=== PATIENT | female | born 1980 | race American Indian/Alaskan Native ===

== ENCOUNTER 2016-08-09 15:01 | Emergency (ER) | payer MEDICAID | END 2016-08-09 16:10 | disposition left against medical advice (07) | LOC: JP.ED 15:01 | DX: Z53.21 Procedure and treatment not carried out due to patient leaving prior to being seen by health care provider (principal); E86.0 Dehydration; J02.9 Acute pharyngitis, unspecified; R51 Headache | CPT/HCPCS: 99281 ==

== ENCOUNTER 2017-09-13 00:14 | Emergency (ER) | payer MEDICAID ==
[2017-09-13 00:55] VITALS: BP 132/74
--- NOTE | 2017-09-13 01:22 | EDM.PDOC ---
ED HPI GENERAL MEDICAL PROBLEM - General Chief Complaint: Diabetic Complaint Stated Complaint: HIGH BLOOD SUGARS Time Seen by Provider: 09/13/17 01:05 Source of Information: Reports: Patient History Limitations: Reports: No Limitations - History of Present Illness INITIAL COMMENTS - FREE TEXT/NARRATIVE: 36 yo female with NIDDM presents with a request for insulin. She left her insulin at home and drove another family member here to the ER. On the way she stopped at a fast food restaurant and now says she feels like she if getting "high". Was last this high a couple days ago and took extra insulin. Since she is not near her home or her insulin at this time she came to the ER for a dose of insulin. Is on prednisone for another condition and feels this is bumping her BS up. Onset: Today Onset Date: 09/13/17 Duration: Minutes:, Getting Worse Location: Reports: Generalized Quality: Reports: Other (no pain) Severity: Mild Improves with: Reports: Medication (insulin) Worsens with: Reports: Other (food/prednisone) Context: Reports: Other (poorly controlled AODM) Associated Symptoms: Reports: Other (slightly blurred vision. Increase thirst and urination.) Treatments RECYCLING ASSISTANT: Reports: Other (see below) (none) - Related Data Allergies Allergy/AdvReac Type Severity Reaction Status Date / Time Penicillins Allergy Hives Verified 09/13/17 00:54 risperidone [From Risperdal] Allergy Seizure Verified 09/13/17 00:54 venom-honey bee Allergy Anaphylactic Verified 09/13/17 00:54 [bee venom (honey bee)] Shock Home Meds: Home Meds Levothyroxine Sodium [Synthroid] 75 mcg PO DAILY 08/21/14 [History] Metoprolol Tartrate [Lopressor] 50 mg PO BID 08/21/14 [History] Montelukast Sodium [Singulair] 10 mg PO DAILY 08/21/14 [History] Acetaminophen [Tylenol] 650 mg PO ASDIRECTED PRN 05/04/15 [History] Insulin Aspart [Novolog Flexpen] 1 dose SQ ASDIRECTED 05/04/15 [History] Insulin Detemir [Levemir] 40 units SQ BID 05/04/15 [History] Liraglutide [Victoza] 1.8 mg SQ DAILY 05/04/15 [History] Vilazodone [Viibryd] 40 mg PO DAILY 05/04/15 [History] ARIPiprazole [Abilify] 15 mg PO DAILY 06/29/15 [History] Aspirin [Adult Low Dose Aspirin EC] 81 mg PO DAILY 06/29/15 [History] Cholecalciferol (Vitamin D3) [Vitamin D3] 5,000 unit PO DAILY 06/29/15 [History] Hydrochlorothiazide 25 mg PO BID 06/29/15 [History] Multivitamin [Multi-Vitamin Daily] 1 tab PO DAILY 06/29/15 [History] Potassium Chloride [Klor-Con] 25 meq PO DAILY 06/29/15 [History] Spironolactone [Aldactone] 25 mg PO DAILY 06/17/16 [History] Past Medical History HEENT History: Reports: Impaired Vision Cardiovascular History: Reports: Arrhythmia, Hypertension Respiratory History: Reports: Asthma Gastrointestinal History: Reports: Cirrhosis, GERD, Hepatitis, Other (See Below) Other Gastrointestinal History: Esophageal varises Genitourinary History: Reports: Other (See Below) Other Genitourinary History: IGA 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 LEAD History: Reports: Other OB/BYN History: c sections x3 Musculoskeletal History: Reports: Back Pain, Chronic, Fracture Other Musculoskeletal History: t8 com Neurological History: Reports: Concussion, Seizure Psychiatric History: Reports: Addiction, Anxiety, Depression, Suicide Attempt Other Psychiatric History: recently off civil commitment done in January Endocrine/Metabolic History: Reports: Diabetes, Type II, Hypothyroidism, Obesity /BMI 30+ Immunologic History: Reports: Other (See Below) Other Immunologic History: Hep C - Infectious Disease History Infectious Disease History: Reports: Chicken Pox - Past Surgical History GI Surgical History: Reports: Cholecystectomy Female Surgical History: Reports: Section, Other (See Below) Other Female Surgeries/Procedures: bilateral kidney biopsy Social & Family History - Tobacco Use Smoking Status *Q: Current Every Day Smoker Years of Tobacco use: 20 Packs/Tins Daily: 1 Used Tobacco, but Quit: No Second Hand Smoke Exposure: Yes - Caffeine Use Caffeine Use: Reports: Tea Caffeine Use Comment: Past use of energy drinks, over use. - Alcohol Use Days Per Week of Alcohol Use: 0 - Recreational Drug Use Recreational Drug Use: Yes Drug Use in Last 12 Months: No Recreational Drug Type: Reports: Heroin Recreational Drug Use Frequency: Daily ED ROS GENERAL - Review of Systems Review Of Systems: See Below Constitutional: Reports: No Symptoms HEENT: Reports: No Symptoms Respiratory: Reports: No Symptoms GI/Abdominal: Reports: No Symptoms : Reports: No Symptoms Musculoskeletal: Reports: No Symptoms Skin: Reports: No Symptoms Neurological: Reports: No Symptoms Psychiatric: Reports: No Symptoms ED EXAM GENERAL NO PERIP PULSE - Physical Exam Exam: See Below Exam Limited By: No Limitations General Appearance: Alert, WD/WN, No Apparent Distress, Obese Eye Exam: Bilateral Eye: Normal Inspection Ears: Normal External Exam, Normal Canal, Hearing Grossly Normal, Normal TMs Nose: Normal Inspection, Normal Mucosa, No Blood Throat/Mouth: Normal Inspection, Normal Lips, Normal Oropharynx, No Airway Compromise Head: Atraumatic, Normocephalic Neck: Normal Inspection Respiratory/Chest: No Respiratory Distress, Lungs Clear, Normal Breath Sounds, No Accessory Muscle Use Cardiovascular: Regular Rate, Rhythm GI/Abdominal: Soft, Non-Tender Extremities: Normal Inspection Neurological: Alert, Oriented, CN II-XII Intact, Normal Cognition, No Motor/ Sensory Deficits Psychiatric: Normal Affect, Normal Mood Skin Exam: Warm, Dry, Intact, Normal Color, No Rash Course - Vital Signs Last Recorded V/S: Last Vital Signs Temp 35.9 C 09/13/17 00:55 Pulse 101 H 09/13/17 00:55 Resp 20 09/13/17 00:55 BP 132/74 09/13/17 00:55 Pulse Ox 98 09/13/17 00:55 - Orders/Labs/Meds Orders: Active Orders 24 hr Category Date Time Status GLUCOSE POC LAB TO COLLECT [POC] Stat Lab 09/13/17 01:17 Ordered Departure - Departure Time of Disposition: 01:40 Disposition: Home, Self-Care 01 Condition: Fair Clinical Impression: Hyperglycemia - Discharge Information Referrals: Adelso Groves MD [Primary Care Provider] - - My Orders Last 24 Hours: My Active Orders 09/13/17 01:17 GLUCOSE POC LAB TO COLLECT [POC] Stat - Assessment/Plan Last 24 Hours: My Active Orders 09/13/17 01:17 GLUCOSE POC LAB TO COLLECT [POC] Stat
[2017-09-13] MEDS ORDERED: Insulin Aspart 100 Units/ML 3 ML Pen SUBCUT ONE (01:24)
== END 2017-09-13 01:47 | disposition home or self-care (01) ==
LOC: JP.ED 00:14
DX: E11.65 Type 2 diabetes mellitus with hyperglycemia (principal); F17.210 Nicotine dependence, cigarettes, uncomplicated; E03.9 Hypothyroidism, unspecified; I10 Essential (primary) hypertension; K21.9 Gastro-esophageal reflux disease without esophagitis; Z79.4 Long term (current) use of insulin; Z79.899 Other long term (current) drug therapy; Z91.030 Bee allergy status; Z88.0 Allergy status to penicillin; Z88.8 Allergy status to other drugs, medicaments and biological substances
CPT/HCPCS: 82962; 99285; A9270

== ENCOUNTER 2017-09-13 17:48 | Emergency (ER) | payer MEDICAID | END 2017-09-13 19:00 | disposition left against medical advice (07) | LOC: JP.ED 17:48 | DX: Z53.21 Procedure and treatment not carried out due to patient leaving prior to being seen by health care provider (principal) ==

== ENCOUNTER 2018-01-18 16:52 | Emergency (ER) | payer MEDICAID ==
[2018-01-18 17:18] VITALS: BP 184/107
--- NOTE | 2018-01-18 17:44 | EDM.PDOC ---
ED HPI GENERAL MEDICAL PROBLEM - General Chief Complaint: ENT Problem Stated Complaint: TOOTHACHE LEFT UPPER Time Seen by Provider: 01/18/18 17:12 Source of Information: Reports: Patient History Limitations: Reports: No Limitations - History of Present Illness INITIAL COMMENTS - FREE TEXT/NARRATIVE: 37 yo female presents to the ER with left upper tooth cavity and associated pain. She does have established care with dentist at [facility]. over the last 3 days increase in pain. Participated in [facility]. Other then methadone has not taken anything for pain. afebrile left upper tooth Pain Score (Numeric/FACES): 7 - Related Data Allergies Allergy/AdvReac Type Severity Reaction Status Date / Time acetaminophen [From Tylenol] Allergy Other Verified 01/18/18 17:13 ibuprofen Allergy Other Verified 01/18/18 17:13 Penicillins Allergy Hives Verified 01/18/18 17:13 risperidone [From Risperdal] Allergy Seizure Verified 01/18/18 17:13 venom-honey bee Allergy Anaphylactic Verified 01/18/18 17:13 [bee venom (honey bee)] Shock Home Meds: Home Meds Levothyroxine Sodium [Synthroid] 100 mcg PO DAILY 08/21/14 [History] Metoprolol Tartrate [Lopressor] 25 mg PO BID 08/21/14 [History] Montelukast Sodium [Singulair] 10 mg PO DAILY 08/21/14 [History] Vilazodone [Viibryd] 40 mg PO DAILY 05/04/15 [History] ARIPiprazole [Abilify] 20 mg PO DAILY 06/29/15 [History] Potassium Chloride [Klor-Con] 25 meq PO DAILY PRN 06/29/15 [History] hydroCHLOROthiazide [Hydrochlorothiazide] 25 mg PO BID 06/29/15 [History] Doxepin [SINEquan] 1 cap PO BEDTIME PRN 12/27/17 [History] Gabapentin [Neurontin] 1 tab PO QID 12/27/17 [History] Methadone HCl [Methadone] 103 mg PO DAILY 12/27/17 [History] Losartan [Cozaar] 25 mg PO DAILY 01/18/18 [History] Past Medical History HEENT History: Reports: Impaired Vision Cardiovascular History: Reports: Arrhythmia, Hypertension Respiratory History: Reports: Asthma Gastrointestinal History: Reports: Cirrhosis, GERD, Hepatitis, Other (See Below) Other Gastrointestinal History: Esophageal varises Genitourinary History: Reports: Diabetic Nephropathy, Renal Disease, Other (See Below) Other Genitourinary History: IGA 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: Reports: Other 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: c sections x3 Musculoskeletal History: Reports: Back Pain, Chronic, Fracture Other Musculoskeletal History: t8 com Neurological History: Reports: Concussion, Seizure Psychiatric History: Reports: Addiction, Anxiety, Depression, Suicide Attempt Other Psychiatric History: recently off civil commitment done in January Endocrine/Metabolic History: Reports: Diabetes, Type II, Hypothyroidism, Obesity /BMI 30+ Immunologic History: Reports: Other (See Below) Other Immunologic History: Hep C - Infectious Disease History Infectious Disease History: Reports: Hepatitis C Other Infectious Disease History: current infection of abdominal wound, not MRSA or VRE - Past Surgical History Cardiovascular Surgical History: Reports: None GI Surgical History: Reports: Cholecystectomy Female Surgical History: Reports: Section, Other (See Below) Other Female Surgeries/Procedures: bilateral kidney biopsy Social & Family History - Family History Family Medical History: Noncontributory - Tobacco Use Smoking Status *Q: Current Every Day Smoker Years of Tobacco use: 10 Packs/Tins Daily: 1 - Caffeine Use Caffeine Use: Reports: None Caffeine Use Comment: Past use of energy drinks, over use. - Recreational Drug Use Recreational Drug Use: No ED ROS ENT - Review of Systems Review Of Systems: See Below Constitutional: Denies: Fever, Chills HEENT: Reports: Dental Pain Respiratory: Denies: Shortness of Breath, Wheezing Cardiovascular: Denies: Chest Pain ED EXAM, ENT - Physical Exam Exam: See Below Exam Limited By: No Limitations General Appearance: Alert, WD/WN, No Apparent Distress Nose: Normal Inspection, Normal Mucousa, No Blood Mouth/Throat: Normal Lips, Normal Oropharynx, Other (2 cavities upper left and central front) Head: Atraumatic, Normocephalic Neck: Supple, Non-Tender, Full Range of Motion, Lymphadenopathy (L). No: Lymphadenopathy (R) Respiratory/Chest: Lungs Clear Cardiovascular: Regular Rate, Rhythm Course - Vital Signs Last Recorded V/S: Last Vital Signs Temp 35.9 C 01/18/18 17:17 Pulse 98 01/18/18 17:17 Resp 12 01/18/18 17:17 BP 184/107 H 01/18/18 17:17 Pulse Ox 98 01/18/18 17:17 - Orders/Labs/Meds Orders: Active Orders 24 hr Category Date Time Status Ketorolac [Toradol] Med 01/18/18 18:38 Once 30 mg IM ONETIME ONE Labs: Laboratory Tests 01/18/18 Range/Units 18:13 Sodium 137 L (140-148) mmol/L Potassium 4.2 (3.6-5.2) mmol/L Chloride 104 (100-108) mmol/L Carbon Dioxide 20 L (21-32) mmol/L Anion Gap 17.2 H (5.0-14.0) mmol/L BUN 13 (7-18) mg/dL Creatinine 0.9 (0.6-1.0) mg/dL Est Cr Clr Drug Dosing 73.90 mL/min Estimated GFR (MDRD) > 60 (>60) Glucose 127 H (74-106) mg/dL Calcium 8.6 (8.5-10.1) mg/dL - Re-Assessments/Exams Free Text/Narrative Re-Assessment/Exam: 01/18/18 18:38 pt reports hx of kidney abnormality. kidney function WNL will instruct to use naproxen for next 5 days and to be seen by her dentist Departure - Departure Time of Disposition: 18:39 Disposition: Home, Self-Care 01 Condition: Good Clinical Impression: Dental caries - Discharge Information *PRESCRIPTION DRUG MONITORING PROGRAM REVIEWED*: No *COPY OF PRESCRIPTION DRUG MONITORING REPORT IN PATIENT JOSE LUIS: No Instructions: Dental Extraction, Care After, [id number] Referrals: PCP,None [Primary Care Provider] - Forms: ED Department Discharge Additional Instructions: follow-up with dentist in the AM use dental wax to cover cavity naproxen twice daily for next 5 days - My Orders Last 24 Hours: My Active Orders 01/18/18 18:38 Ketorolac [Toradol] 30 mg IM ONETIME ONE - Assessment/Plan Last 24 Hours: My Active Orders 01/18/18 18:38 Ketorolac [Toradol] 30 mg IM ONETIME ONE
[2018-01-18] MEDS ORDERED: Ketorolac 30 MG/ML SDV IM ONE (18:38)
== END 2018-01-18 19:13 | disposition home or self-care (01) ==
LOC: JP.ED 16:52
DX: K02.9 Dental caries, unspecified (principal); F17.210 Nicotine dependence, cigarettes, uncomplicated; I10 Essential (primary) hypertension; K21.9 Gastro-esophageal reflux disease without esophagitis; E03.9 Hypothyroidism, unspecified; E11.21 Type 2 diabetes mellitus with diabetic nephropathy; F41.9 Anxiety disorder, unspecified; F32.9 Major depressive disorder, single episode, unspecified; Z79.899 Other long term (current) drug therapy; Z88.6 Allergy status to analgesic agent; Z88.0 Allergy status to penicillin; Z91.030 Bee allergy status
CPT/HCPCS: 36415; 80048; 96372; 99283; J1885

== ENCOUNTER 2018-11-27 20:58 | Emergency (ER) | payer MEDICAID | END 2018-11-27 21:20 | disposition left against medical advice (07) | LOC: JP.ED 20:58 | DX: Z53.21 Procedure and treatment not carried out due to patient leaving prior to being seen by health care provider (principal) ==

== ENCOUNTER 2018-11-30 17:05 | Emergency (ER) | payer MEDICAID ==
[2018-11-30] MEDS ORDERED: Albuterol/Ipratropium 3.0-0.5 MG/3 ML Neb Soln NEB ONE (17:33)
--- NOTE | 2018-11-30 17:59 | EDM.PDOC ---
ED HPI GENERAL MEDICAL PROBLEM - General Chief Complaint: Respiratory Problem Stated Complaint: SOB Time Seen by Provider: 11/30/18 17:50 Source of Information: Reports: Patient History Limitations: Reports: No Limitations - History of Present Illness INITIAL COMMENTS - FREE TEXT/NARRATIVE: 30-year-old female presents with shortness of breath, apparently for the past several weeks. She feels like she is retaining fluid. She was hospitalized in [place] for several days, discharged on Lasix which she has not taken. She was unsure how to fill her prescription. She did not want to go back to [place] because they are "not helping her". She feels like her abdomen is distended, she 's filling with fluid and she has edema. She just can't take a deep breath. She arrived with O2 saturations of 98%, morbidly obese. No fevers or chills or significant cough. 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) Anterior Chest Pain Score (Numeric/FACES): 4 - Related Data Allergies Allergy/AdvReac Type Severity Reaction Status Date / Time acetaminophen [From Tylenol] Allergy Other Verified 11/30/18 17:11 ibuprofen Allergy Other Verified 11/30/18 17:11 Penicillins Allergy Hives Verified 11/30/18 17:11 risperidone [From Risperdal] Allergy Seizure Verified 11/30/18 17:11 venom-honey bee Allergy Anaphylactic Verified 11/30/18 17:11 [bee venom (honey bee)] Shock Home Meds: Home Meds Levothyroxine Sodium [Synthroid] 100 mcg PO DAILY 08/21/14 [History] Metoprolol Tartrate [Lopressor] 25 mg PO BID 08/21/14 [History] Montelukast Sodium [Singulair] 10 mg PO DAILY 08/21/14 [History] Vilazodone [Viibryd] 40 mg PO DAILY 05/04/15 [History] ARIPiprazole [Abilify] 20 mg PO DAILY 06/29/15 [History] Potassium Chloride [Klor-Con] 25 meq PO DAILY PRN 06/29/15 [History] hydroCHLOROthiazide [Hydrochlorothiazide] 25 mg PO BID 06/29/15 [History] Doxepin [SINEquan] 1 cap PO BEDTIME PRN 12/27/17 [History] Gabapentin [Neurontin] 1 tab PO QID 12/27/17 [History] Methadone HCl [Methadone] 125 mg PO DAILY 12/27/17 [History] Losartan [Cozaar] 25 mg PO DAILY 01/18/18 [History] Past Medical History HEENT History: Reports: Impaired Vision Cardiovascular History: Reports: Arrhythmia, Hypertension Respiratory History: Reports: Asthma Gastrointestinal History: Reports: Cirrhosis, GERD, Hepatitis, Other (See Below) Other Gastrointestinal History: Esophageal varises Genitourinary History: Reports: Diabetic Nephropathy, Renal Disease, Other (See Below) Other Genitourinary History: IGA Kidney biopsy Late October 2018 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 GLASSWARE MAKER History: c 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 x3 Musculoskeletal History: Reports: Back Pain, Chronic, Fracture Other Musculoskeletal History: t8 com Neurological History: Reports: Concussion, Seizure Psychiatric History: Reports: Addiction, Anxiety, Depression, Suicide Attempt Other Psychiatric History: recently off civil commitment done in January Endocrine/Metabolic History: Reports: Diabetes, Type II, Hypothyroidism, Obesity /BMI 30+ Immunologic History: Reports: Other (See Below) Other Immunologic History: Hep C - Infectious Disease History Infectious Disease History: Reports: Chicken Pox Other Infectious Disease History: current infection of abdominal wound, not MRSA or VRE - Past Surgical History Cardiovascular Surgical History: Reports: None GI Surgical History: Reports: Cholecystectomy Female Surgical History: Reports: Section, Other (See Below) Other Female Surgeries/Procedures: bilateral kidney biopsy Social & Family History - Family History Family Medical History: Noncontributory - Tobacco Use Smoking Status *Q: Current Every Day Smoker Years of Tobacco use: 20 Packs/Tins Daily: 1 Used Tobacco, but Quit: No Second Hand Smoke Exposure: No - Caffeine Use Caffeine Use: Reports: None Caffeine Use Comment: Past use of energy drinks, over use. - Alcohol Use Days Per Week of Alcohol Use: 0 - Recreational Drug Use Recreational Drug Use: No ED ROS GENERAL - Review of Systems Review Of Systems: See Below Constitutional: Reports: Malaise. Denies: Fever, Chills HEENT: Reports: No Symptoms Respiratory: Reports: Shortness of Breath Cardiovascular: Denies: Chest Pain GI/Abdominal: Reports: Distension : Reports: No Symptoms Neurological: Reports: Difficulty Walking, Weakness ED EXAM, GENERAL - Physical Exam Exam: See Below Exam Limited By: No Limitations General Appearance: Alert, No Apparent Distress, Other (Patient was just finishing a nebulizer when I evaluated the patient physically) Respiratory/Chest: No Respiratory Distress, Lungs Clear Cardiovascular: Regular Rate, Rhythm GI/Abdominal: Other (Morbidly obese abdomen) Extremities: Other (Patient has only a trace of lower extremity edema) Neurological: Alert, Oriented Course - Vital Signs Last Recorded V/S: Last Vital Signs Temp 97.3 F 11/30/18 17:10 Pulse 96 11/30/18 19:16 Resp 18 11/30/18 19:16 BP 134/84 11/30/18 19:16 Pulse Ox 97 11/30/18 19:16 - Orders/Labs/Meds Orders: Active Orders 24 hr Category Date Time Status RT Aerosol Therapy [RC] ASDIRECTED Care 11/30/18 17:33 Active Labs: Laboratory Tests 11/30/18 11/30/18 Range/Units 18:25 18:30 WBC 16.1 H (4.5-11.0) K/uL RBC 4.83 (3.30-5.50) M/uL Hgb 15.2 H (12.0-15.0) g/dL Hct 42.9 (36.0-48.0) % MCV 89 (80-98) fL MCH 32 H (27-31) pg MCHC 35 (32-36) % Plt Count 86 L (150-400) K/uL Neut % (Auto) 82 H (36-66) % Lymph % (Auto) 8 L (24-44) % Baxter % (Auto) 9 H (2-6) % Eos % (Auto) 1 L (2-4) % Baso % (Auto) 0 (0-1) % Sodium 139 L (140-148) mmol/L Potassium 4.3 (3.6-5.2) mmol/L Chloride 105 (100-108) mmol/L Carbon Dioxide 23 (21-32) mmol/L Anion Gap 15.3 H (5.0-14.0) mmol/L BUN 27 H D (7-18) mg/dL Creatinine 1.3 H (0.6-1.0) mg/dL Est Cr Clr Drug Dosing 52.80 mL/min Estimated GFR (MDRD) 46 L (>60) Glucose 93 (74-106) mg/dL Calcium 8.2 L (8.5-10.1) mg/dL Meds: Medications Discontinued Medications Generic Name Dose Route Start Last Admin Trade Name Darrell PRN Reason Stop Dose Admin Albuterol/Ipratropium 3 ml 11/30/18 17:33 11/30/18 17:38 Duoneb 3.0-0.5 Mg/3 Ml NEB 11/30/18 17:34 3 ml ONETIME ONE Administration Furosemide 40 mg 11/30/18 18:57 11/30/18 19:15 Lasix PO 11/30/18 18:58 40 mg ONETIME ONE Administration - Re-Assessments/Exams Free Text/Narrative Re-Assessment/Exam: 11/30/18 18:38 Blood was obtained for a CBC and BMP which will be compared to her discharge summary in [place]. 11/30/18 19:43 Creatinine is now 1.3 and GFR 46. These are improvements from her recent hospitalization. She was given 40 mg oral Lasix, and a prescription to continue with 40 mg daily. Her discharge summary from [place] was obtained, she was supposed to follow up with several physicians today and tomorrow and Friday, but she had already left when the discharge summary arrived. She obviously missed her appointments today. Hopefully she will follow up with Dr. Welch on Friday as scheduled. Departure - Departure Time of Disposition: 19:24 Disposition: Home, Self-Care 01 Clinical Impression: Peripheral edema, Shortness of breath - Discharge Information Instructions: Shortness of Breath, Adult, [id number] Referrals: PCP,None [Primary Care Provider] - Forms: ED Department Discharge Care Plan Goals: It's very important that you take 40 mg of Lasix each morning, and decrease the amount of salt intake. Increase activity as tolerated and recheck in 5-10 days if not improving satisfactorily, or return sooner if you feel you are worsening.
[2018-11-30] MEDS ORDERED: Furosemide 40 MG Tab PO ONE (18:57)
[2018-11-30 19:18] VITALS: BP 134/84; PULSE 96
== END 2018-11-30 19:27 | disposition home or self-care (01) ==
LOC: JP.ED 17:05
DX: R06.02 Shortness of breath (principal); R60.0 Localized edema; I10 Essential (primary) hypertension; J45.909 Unspecified asthma, uncomplicated; K21.9 Gastro-esophageal reflux disease without esophagitis; E11.21 Type 2 diabetes mellitus with diabetic nephropathy; Z88.0 Allergy status to penicillin; Z88.8 Allergy status to other drugs, medicaments and biological substances; Z79.899 Other long term (current) drug therapy
CPT/HCPCS: 36415; 80048; 85025; 94640; 99285; A9270; J7620-GY

== ENCOUNTER 2019-03-29 18:19 | Emergency (ER) | payer MEDICAID ==
[2019-03-29 18:45] VITALS: BP 133/79; PULSE 56
--- NOTE | 2019-03-29 19:04 | EDM.PDOC ---
ED HPI GENERAL MEDICAL PROBLEM - General Chief Complaint: General Stated Complaint: [facility] Time Seen by Provider: 03/29/19 18:45 Source of Information: Reports: Patient, EMS, Old Records, RN History Limitations: Reports: No Limitations - History of Present Illness INITIAL COMMENTS - FREE TEXT/NARRATIVE: 38 yo NA obese female here via EMS for elevated blood sugar for the past 4 days getting worse. Has not had a fever or other sign of infection. Has not contacted her provider about her elevated blood sugars. Has taken extra insulin without success in keeping it down. Has not eaten anything that should be raising her sugars. Came by ambulance because she doesn't have a car and none of her friends or relatives have cars. Onset: Gradual Onset Date: 03/26/19 Duration: Day(s):, Getting Worse Location: Reports: Generalized Quality: Reports: Other (no pain reported) Severity: Moderate Improves with: Reports: Medication (insulin) Worsens with: Reports: Other (? time) Context: Reports: Other (Has NIDDM and is on chronic steroids.) Associated Symptoms: Reports: Nausea/Vomiting (mild nausea without vomiting) Treatments ROAD TESTER: Reports: Other (see below) (took extra insulin at home, no tx per EMS) - Related Data Allergies Allergy/AdvReac Type Severity Reaction Status Date / Time acetaminophen [From Tylenol] Allergy Other Verified 11/30/18 17:11 ibuprofen Allergy Other Verified 11/30/18 17:11 Penicillins Allergy Hives Verified 03/29/19 18:30 risperidone [From Risperdal] Allergy Seizure Verified 03/29/19 18:30 venom-honey bee Allergy Anaphylactic Verified 03/29/19 18:30 [bee venom (honey bee)] Shock Home Meds: Home Meds Levothyroxine Sodium [Synthroid] 100 mcg PO DAILY 08/21/14 [History] Montelukast Sodium [Singulair] 10 mg PO DAILY 08/21/14 [History] Potassium Chloride [Klor-Con] 25 meq PO DAILY PRN 06/29/15 [History] Gabapentin [Neurontin] 600 tab PO TID 12/27/17 [History] Methadone HCl [Methadone] 125 mg PO DAILY 12/27/17 [History] Albuterol Sulfate [Albuterol Sulfate Hfa] 1 puff INH Q4H PRN 03/29/19 [History] Furosemide [Lasix] 40 mg PO BID 03/29/19 [History] Insulin Detemir [Levemir] 15 unit SUBCUT BEDTIME 03/29/19 [History] Insulin Glargine,Hum.Rec.Anlog [Basaglar Kwikpen U-100] 10 unit SQ QIDACANDBED 03/29/19 [History] Spironolactone [Aldactone] 100 mg PO DAILY 03/29/19 [History] cloNIDine [Catapres] 0.1 mg PO BID 03/29/19 [History] predniSONE [Prednisone] 60 mg PO ASDIRECTED 03/29/19 [History] Past Medical History HEENT History: Reports: Impaired Vision Cardiovascular History: Reports: Arrhythmia, Hypertension Respiratory History: Reports: Asthma Gastrointestinal History: Reports: Cirrhosis, GERD, Hepatitis, Other (See Below) Other Gastrointestinal History: Esophageal varises, stage 4 liver disease Genitourinary History: Reports: Acute Renal Failure, Chronic Renal Insuffiency, Diabetic Nephropathy, Renal Disease, Other (See Below) Other Genitourinary History: IGA Kidney biopsy Late October 2018, ckd stage 3 STORE ADMINISTRATOR History: Reports: Other STORE ADMINISTRATOR History: c sections x3 Musculoskeletal History: Reports: Back Pain, Chronic, Fracture Other Musculoskeletal History: t8 com Neurological History: Reports: Concussion, Seizure Psychiatric History: Reports: Addiction, Anxiety, Depression, Suicide Attempt Other Psychiatric History: recently off civil commitment done in January Endocrine/Metabolic History: Reports: Diabetes, Type II, Hypothyroidism, Obesity /BMI 30+ Immunologic History: Reports: Other (See Below) Other Immunologic History: Hep C Dermatologic History: Reports: Cellulitis - Infectious Disease History Infectious Disease History: Reports: Hepatitis C Other Infectious Disease History: current infection of abdominal wound, not MRSA or VRE - Past Surgical History GI Surgical History: Reports: Cholecystectomy Female Surgical History: Reports: Section, Other (See Below) Other Female Surgeries/Procedures: bilateral kidney biopsy Social & Family History - Family History Family Medical History: Noncontributory - Tobacco Use Smoking Status *Q: Current Every Day Smoker Years of Tobacco use: 20 Packs/Tins Daily: 0.5 - Caffeine Use Caffeine Use: Reports: None Caffeine Use Comment: Past use of energy drinks, over use. - Recreational Drug Use Recreational Drug Use: No ED ROS GENERAL - Review of Systems Review Of Systems: See Below Constitutional: Reports: No Symptoms HEENT: Reports: No Symptoms Respiratory: Reports: Wheezing (occasional, mild) Cardiovascular: Reports: No Symptoms Endocrine: Reports: High Glucose GI/Abdominal: Reports: Nausea. Denies: Vomiting : Reports: No Symptoms Musculoskeletal: Reports: No Symptoms Skin: Reports: No Symptoms Neurological: Reports: No Symptoms ED EXAM, GENERAL - Physical Exam Exam: See Below Exam Limited By: No Limitations General Appearance: Alert, WD/WN, No Apparent Distress, Obese Eye Exam: Bilateral Eye: EOMI, Normal Inspection, PERRL Ears: Normal External Exam, Normal Canal, Hearing Grossly Normal, Normal TMs Ear Exam: Bilateral Ear: Auricle Normal, Canal Normal, TM normal Nose: Normal Inspection, Normal Mucosa, No Blood Throat/Mouth: Normal Inspection, Normal Lips, Normal Oropharynx, Normal Voice, No Airway Compromise Head: Atraumatic, Normocephalic Neck: Normal Inspection Respiratory/Chest: No Respiratory Distress, Lungs Clear, Normal Breath Sounds, No Accessory Muscle Use Cardiovascular: Regular Rate, Rhythm, No Edema GI/Abdominal: Normal Bowel Sounds, Soft, Non-Tender, No Distention Back Exam: Normal Inspection. No: CVA Tenderness (R), CVA Tenderness (L) Extremities: Normal Inspection, Normal Range of Motion, Non-Tender, No Pedal Edema Neurological: Alert, Oriented, CN II-XII Intact, Normal Cognition, No Motor/ Sensory Deficits Psychiatric: Normal Affect, Normal Mood Skin Exam: Warm, Dry, Intact, Normal Color, No Rash Course - Vital Signs Last Recorded V/S: Last Vital Signs Temp 35.7 C 03/29/19 18:44 Pulse 56 L 03/29/19 18:44 Resp 16 03/29/19 18:44 BP 133/79 03/29/19 18:44 Pulse Ox 97 03/29/19 18:44 - Orders/Labs/Meds Labs: Laboratory Tests 03/29/19 03/29/19 03/29/19 Range/Units 18:25 18:25 18:57 WBC 12.7 H (4.5-11.0) K/uL RBC 4.81 (3.30-5.50) M/uL Hgb 14.2 (12.0-15.0) g/dL Hct 41.9 (36.0-48.0) % MCV 87 (80-98) fL MCH 30 (27-31) pg MCHC 34 (32-36) % Plt Count 97 L (150-400) K/uL Sodium 131 L (140-148) mmol/L Potassium 4.6 (3.6-5.2) mmol/L Chloride 100 (100-108) mmol/L Carbon Dioxide 21 (21-32) mmol/L Anion Gap 14.6 H (5.0-14.0) mmol/L BUN 28 H (7-18) mg/dL Creatinine 1.4 H (0.6-1.0) mg/dL Est Cr Clr Drug Dosing 49.03 mL/min Estimated GFR (MDRD) 42 L (>60) Glucose 546 H* (74-106) mg/dL Calcium 8.2 L (8.5-10.1) mg/dL Troponin I < 0.017 (0.000-0.056) ng/mL C-Reactive Protein (0.0-0.3) mg/dL Urine Color Yellow (YELLOW) Urine Appearance Clear (CLEAR) Urine pH 6.5 (5.0-8.0) Ur Specific Meredith 1.015 (1.008-1.030) Urine Protein 100 H (NEGATIVE) mg/dL Urine Glucose (UA) 500 H (NEGATIVE) mg/dL Urine Ketones Negative (NEGATIVE) mg/dL Urine Occult Blood Moderate H (NEGATIVE) Urine Nitrite Negative (NEGATIVE) Urine Bilirubin Negative (NEGATIVE) Urine Urobilinogen 0.2 (0.2-1.0) EU/dL Ur Leukocyte Esterase Negative (NEGATIVE) Urine RBC 0-5 (0-5) Urine WBC 0-5 (0-5) Ur Epithelial Cells Few Amorphous Sediment Few Urine Bacteria Not seen Urine Mucus Not seen Urine Opiates Screen (NEGATIVE) Ur Oxycodone Screen (NEGATIVE) Urine Methadone Screen (NEGATIVE) Ur Propoxyphene Screen (NEGATIVE) Ur Barbiturates Screen (NEGATIVE) Ur Tricyclics Screen (NEGATIVE) Ur Phencyclidine Scrn (NEGATIVE) Ur Amphetamine Screen (NEGATIVE) U Methamphetamines Scrn (NEGATIVE) Urine MDMA Screen (NEGATIVE) U Benzodiazepines Scrn (NEGATIVE) U Cocaine Metab Screen (NEGATIVE) U Marijuana (THC) Screen (NEGATIVE) 03/29/19 03/29/19 Range/Units 19:30 19:53 WBC (4.5-11.0) K/uL RBC (3.30-5.50) M/uL Hgb (12.0-15.0) g/dL Hct (36.0-48.0) % MCV (80-98) fL MCH (27-31) pg MCHC (32-36) % Plt Count (150-400) K/uL Sodium (140-148) mmol/L Potassium (3.6-5.2) mmol/L Chloride (100-108) mmol/L Carbon Dioxide (21-32) mmol/L Anion Gap (5.0-14.0) mmol/L BUN (7-18) mg/dL Creatinine (0.6-1.0) mg/dL Est Cr Clr Drug Dosing mL/min Estimated GFR (MDRD) (>60) Glucose (74-106) mg/dL Calcium (8.5-10.1) mg/dL Troponin I (0.000-0.056) ng/mL C-Reactive Protein 0.14 (0.0-0.3) mg/dL Urine Color (YELLOW) Urine Appearance (CLEAR) Urine pH (5.0-8.0) Ur Specific Meredith (1.008-1.030) Urine Protein (NEGATIVE) mg/dL Urine Glucose (UA) (NEGATIVE) mg/dL Urine Ketones (NEGATIVE) mg/dL Urine Occult Blood (NEGATIVE) Urine Nitrite (NEGATIVE) Urine Bilirubin (NEGATIVE) Urine Urobilinogen (0.2-1.0) EU/dL Ur Leukocyte Esterase (NEGATIVE) Urine RBC (0-5) Urine WBC (0-5) Ur Epithelial Cells Amorphous Sediment Urine Bacteria Urine Mucus Urine Opiates Screen Negative (NEGATIVE) Ur Oxycodone Screen Negative (NEGATIVE) Urine Methadone Screen Presumptive positive H (NEGATIVE) Ur Propoxyphene Screen Negative (NEGATIVE) Ur Barbiturates Screen Negative (NEGATIVE) Ur Tricyclics Screen Negative (NEGATIVE) Ur Phencyclidine Scrn Negative (NEGATIVE) Ur Amphetamine Screen Negative (NEGATIVE) U Methamphetamines Scrn Negative (NEGATIVE) Urine MDMA Screen Negative (NEGATIVE) U Benzodiazepines Scrn Negative (NEGATIVE) U Cocaine Metab Screen Negative (NEGATIVE) U Marijuana (THC) Screen Negative (NEGATIVE) Meds: Medications Discontinued Medications Generic Name Dose Route Start Last Admin Trade Name Freq PRN Reason Stop Dose Admin Hydromorphone HCl 1 mg 03/29/19 19:22 03/29/19 19:32 Dilaudid IVPUSH 03/29/19 19:23 Not Given ONETIME ONE Insulin Human Regular 20 unit 03/29/19 19:51 03/29/19 20:01 Humulin R SUBCUT 03/29/19 19:52 20 unit ONETIME ONE Administration Departure - Departure Time of Disposition: 21:15 Disposition: Home, Self-Care 01 Condition: Fair Clinical Impression: Elevated blood sugar - Discharge Information *PRESCRIPTION DRUG MONITORING PROGRAM REVIEWED*: No *COPY OF PRESCRIPTION DRUG MONITORING REPORT IN PATIENT JOSE LUIS: No Instructions: Hyperglycemia, [id number] Referrals: PCP,None [Primary Care Provider] - Forms: ED Department Discharge Additional Instructions: Increase your bedtime Levemir to 25 units subcut. Increase your short acting insulin to 12-15 units before meals and at bedtime. Call your doctor tomorrow to discuss your blood sugar problem. Get as much exercise as you can to help reduce your blood sugar. Return as needed.
[2019-03-29] MEDS ORDERED: HYDROmorphone 1 MG/ML Syringe IVPUSH ONE (19:22)
[2019-03-29] MEDS ORDERED: Insulin Regular, Human 100 Units/ML 3 ML Vial SUBCUT ONE (19:51)
== END 2019-03-29 21:13 | disposition home or self-care (01) ==
LOC: JP.ED 18:19
DX: E11.65 Type 2 diabetes mellitus with hyperglycemia (principal); E11.22 Type 2 diabetes mellitus with diabetic chronic kidney disease; I12.9 Hypertensive chronic kidney disease with stage 1 through stage 4 chronic kidney disease, or unspecified chronic kidney disease; N18.9 Chronic kidney disease, unspecified; J45.909 Unspecified asthma, uncomplicated; E11.40 Type 2 diabetes mellitus with diabetic neuropathy, unspecified; E03.9 Hypothyroidism, unspecified; F17.210 Nicotine dependence, cigarettes, uncomplicated; Z88.6 Allergy status to analgesic agent; E66.9 Obesity, unspecified; Z68.42 Body mass index [BMI] 45.0-49.9, adult; Z88.0 Allergy status to penicillin; Z88.8 Allergy status to other drugs, medicaments and biological substances; Z91.030 Bee allergy status; Z79.4 Long term (current) use of insulin; Z79.890 Hormone replacement therapy; Z79.52 Long term (current) use of systemic steroids
CPT/HCPCS: 36415; 80048; 80305-QW; 81001; 82962; 84484; 85027; 86140; 96372; 99284-25; J1815-GY

== ENCOUNTER 2020-04-03 17:21 | Emergency (ER) | payer MEDICAID ==
[2020-04-03 17:35] VITALS: BP 153/89; PULSE 79
--- NOTE | 2020-04-03 17:50 | EDM.PDOC ---
ED HPI GENERAL MEDICAL PROBLEM - General Chief Complaint: General Stated Complaint: MUSCLE CRAMPS Abdominal Pain Score (Numeric/FACES): 4 - Related Data Allergies Allergy/AdvReac Type Severity Reaction Status Date / Time acetaminophen [From Tylenol] Allergy Other Verified 04/03/20 17:38 ibuprofen Allergy Other Verified 04/03/20 17:38 Penicillins Allergy Hives Verified 04/03/20 17:38 risperidone [From Risperdal] Allergy Seizure Verified 04/03/20 17:38 venom-honey bee Allergy Anaphylactic Verified 04/03/20 17:38 [bee venom (honey bee)] Shock Home Meds: Home Meds Levothyroxine Sodium [Synthroid] 100 mcg PO DAILY 08/21/14 [History] Montelukast Sodium [Singulair] 10 mg PO DAILY 08/21/14 [History] Potassium Chloride [Klor-Con] 25 meq PO DAILY PRN 06/29/15 [History] Gabapentin [Neurontin] 600 tab PO TID 12/27/17 [History] Methadone HCl [Methadone] 125 mg PO DAILY 12/27/17 [History] Albuterol Sulfate [Albuterol Sulfate Hfa] 1 puff INH Q4H PRN 03/29/19 [History] Furosemide [Lasix] 40 mg PO BID 03/29/19 [History] Insulin Detemir [Levemir] 15 unit SUBCUT BEDTIME 03/29/19 [History] Insulin Glargine,Hum.Rec.Anlog [Basaglar Kwikpen U-100] 10 unit SQ QIDACANDBED 03/29/19 [History] Spironolactone [Aldactone] 100 mg PO DAILY 03/29/19 [History] cloNIDine [Catapres] 0.1 mg PO BID 03/29/19 [History] predniSONE [Prednisone] 60 mg PO ASDIRECTED 03/29/19 [History] Past Medical History HEENT History: Reports: Impaired Vision Cardiovascular History: Reports: Arrhythmia, Hypertension Respiratory History: Reports: Asthma Gastrointestinal History: Reports: Cirrhosis, GERD, Hepatitis, Other (See Below) Other Gastrointestinal History: Esophageal varises, stage 4 liver disease Genitourinary History: Reports: Acute Renal Failure, Chronic Renal Insuffiency, Diabetic Nephropathy, Renal Disease, Other (See Below) Other Genitourinary History: IGA Kidney biopsy Late October 2018, ckd stage 3 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: 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 WILDLIFE 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 History: c sections x3 Musculoskeletal History: Reports: Back Pain, Chronic, Fracture Other Musculoskeletal History: t8 com Neurological History: Reports: Concussion, Seizure Psychiatric History: Reports: Addiction, Anxiety, Depression, Suicide Attempt Other Psychiatric History: recently off civil commitment done in January Endocrine/Metabolic History: Reports: Diabetes, Type II, Hypothyroidism, Obesity/BMI 30+ Immunologic History: Reports: Other (See Below) Other Immunologic History: Hep C Dermatologic History: Reports: Cellulitis - Infectious Disease History Infectious Disease History: Reports: Hepatitis C Other Infectious Disease History: current infection of abdominal wound, not MRSA or VRE - Past Surgical History GI Surgical History: Reports: Cholecystectomy Female Surgical History: Reports: Section, Other (See Below) Other Female Surgeries/Procedures: bilateral kidney biopsy Social & Family History - Family History Family Medical History: Noncontributory - Caffeine Use Caffeine Use: Reports: None Caffeine Use Comment: Past use of energy drinks, over use. Course - Vital Signs Last Recorded V/S: Last Vital Signs Temp 35.7 C L 04/03/20 17:36 Pulse 79 04/03/20 17:36 Resp 12 04/03/20 17:36 BP 153/89 H 04/03/20 17:36 Pulse Ox 98 04/03/20 17:36 Departure - Discharge Information Referrals: Sierra Pimentel MD [Primary Care Provider] - Sepsis Event Note (ED) - Evaluation Sepsis Screening Result: No Definite Risk - Focused Exam Vital Signs: Vital Signs Temp Pulse Resp BP Pulse Ox 04/03/20 17:36 35.7 C L 79 12 153/89 H 98 04/03/20 17:34 35.7 C L 79 12 153/89 H 98
== END 2020-04-03 18:05 | disposition left against medical advice (07) ==
LOC: JP.ED 17:21
DX: Z53.21 Procedure and treatment not carried out due to patient leaving prior to being seen by health care provider (principal)

== ENCOUNTER 2020-04-04 18:55 | Emergency (ER) | payer MEDICAID ==
[2020-04-04] MEDS ORDERED: Sodium Chloride 0.9% 10 ML Syringe FLUSH PRN (19:43)
[2020-04-04] MEDS ORDERED: Lactated Ringers 1,000 ML IV ONE (19:44)
--- NOTE | 2020-04-04 19:47 | EDM.PDOC ---
ED HPI GENERAL MEDICAL PROBLEM - General Chief Complaint: Diabetic Complaint Stated Complaint: MEDICAL [facility]IA [facility] Time Seen by Provider: 04/04/20 19:36 Source of Information: Reports: Patient, RN Notes Reviewed History Limitations: Reports: No Limitations - History of Present Illness INITIAL COMMENTS - FREE TEXT/NARRATIVE: 39-year-old female presents emergency department today complaint of elevated blood sugars, she has been having problems with elevated blood sugars for some time has been in the clinic they have done some dosing adjustment of her insulin today when she tried to read her blood sugar this afternoon her machine just at high she started to feel nauseated she has had problems with DKA in the past feels sweaty at this time. She also feels short of breath - Related Data Allergies Allergy/AdvReac Type Severity Reaction Status Date / Time acetaminophen [From Tylenol] Allergy Other Verified 04/04/20 18:57 buprenorphine Allergy Other Verified 04/04/20 19:13 ibuprofen Allergy Other Verified 04/04/20 18:57 naloxone Allergy Other Verified 04/04/20 19:13 naltrexone Allergy Other Verified 04/04/20 19:13 Penicillins Allergy Hives Verified 04/04/20 18:57 pentazocine Allergy Other Verified 04/04/20 19:13 risperidone [From Risperdal] Allergy Seizure Verified 04/04/20 18:57 tramadol Allergy Other Verified 04/04/20 19:13 venom-honey bee Allergy Anaphylactic Verified 04/04/20 18:57 [bee venom (honey bee)] Shock Home Meds: Home Meds Levothyroxine Sodium [Synthroid] 125 mcg PO DAILY 08/21/14 [History] Montelukast Sodium [Singulair] 10 mg PO DAILY 08/21/14 [History] Methadone HCl [Methadone] 112 mg PO DAILY 12/27/17 [History] Albuterol Sulfate [Albuterol Sulfate Hfa] 1 puff INH Q4H PRN 03/29/19 [History] Furosemide [Lasix] 40 mg PO BID 03/29/19 [History] Insulin Glargine,Hum.Rec.Anlog [Basaglar Kwikpen U-100] 18 unit SQ BEDTIME 03/29/19 [History] Spironolactone [Aldactone] 100 mg PO DAILY 03/29/19 [History] cloNIDine [Catapres] 0.1 mg PO BID 03/29/19 [History] ARIPiprazole [Abilify] 20 mg PO DAILY 04/04/20 [History] Insulin Aspart [NovoLOG] 10 unit SQ TID 04/04/20 [History] Ondansetron [Zofran ODT] 4 mg PO Q8H PRN 04/04/20 [History] Vilazodone [Viibryd] 40 mg PO DAILY 04/04/20 [History] Past Medical History HEENT History: Reports: Impaired Vision Cardiovascular History: Reports: Arrhythmia, Hypertension Respiratory History: Reports: Asthma, COPD, SOB Gastrointestinal History: Reports: Cirrhosis, GERD, Hepatitis, Other (See Below) Other Gastrointestinal History: Esophageal varises, stage 4 liver disease Genitourinary History: Reports: Acute Renal Failure, Chronic Renal Insuffiency, Diabetic Nephropathy, Renal Disease, Other (See Below) Other Genitourinary History: IGA Kidney biopsy Late October 2018, ckd stage 3 HOSPITAL UNIT CLERK History: Reports: Other HOSPITAL UNIT CLERK History: c sections x3 Musculoskeletal History: Reports: Back Pain, Chronic, Fracture Other Musculoskeletal History: t8 com Neurological History: Reports: Concussion, Seizure Psychiatric History: Reports: Addiction, Anxiety, Depression, Panic Attack, Psych Hospitalization(s), Psychosis, PTSD, Schizophrenia, Suicide Attempt Other Psychiatric History: recently off civil commitment done in January Endocrine/Metabolic History: Reports: Diabetes, Type II, Hypothyroidism, Obesit y/BMI 30+ Hematologic History: Reports: Idiopathic Thrombocytopenia Immunologic History: Reports: Other (See Below) Other Immunologic History: Hep C Dermatologic History: Reports: Cellulitis - Infectious Disease History Infectious Disease History: Reports: Chicken Pox, Hepatitis C, Influenza Other Infectious Disease History: current infection of abdominal wound, not MRSA or VRE - Past Surgical History GI Surgical History: Reports: Cholecystectomy Female Surgical History: Reports: Section, Other (See Below) Other Female Surgeries/Procedures: bilateral kidney biopsy Social & Family History - Family History Family Medical History: No Pertinent Family History - Tobacco Use Tobacco Use Status *Q: Current Every Day Tobacco User Years of Tobacco use: 14 Packs/Tins Daily: 1 - Caffeine Use Caffeine Use: Reports: None Caffeine Use Comment: Past use of energy drinks, over use. - Recreational Drug Use Recreational Drug Use: Yes Drug Use in Last 12 Months: No Recreational Drug Type: Reports: Heroin Recreational Drug Use Frequency: Not Used In Over 6 Months Recreational Drug Last Use: sober 5 yrs ED ROS GENERAL - Review of Systems Review Of Systems: See Below Constitutional: Denies: Fever, Chills HEENT: Reports: No Symptoms Respiratory: Reports: Shortness of Breath Cardiovascular: Reports: Dyspnea on Exertion Endocrine: Reports: High Glucose GI/Abdominal: Reports: Nausea : Reports: No Symptoms ED EXAM GENERAL NO PERIP PULSE - Physical Exam Exam: See Below Exam Limited By: No Limitations General Appearance: Alert, WD/WN, No Apparent Distress Respiratory/Chest: No Respiratory Distress, Lungs Clear, Normal Breath Sounds, No Accessory Muscle Use, Chest Non-Tender Cardiovascular: Regular Rate, Rhythm, No Murmur GI/Abdominal: Soft, Non-Tender Course - Vital Signs Last Recorded V/S: Last Vital Signs Temp 96.3 F L 04/04/20 18:56 Pulse 68 04/04/20 20:44 Resp 16 04/04/20 20:44 BP 119/66 04/04/20 20:44 Pulse Ox 97 04/04/20 20:44 - Orders/Labs/Meds Orders: Active Orders 24 hr Category Date Time Status Cardiac Monitoring [RC] CONTINUOUS Care 04/04/20 19:43 Active Peripheral IV Care [RC] . DIRECTED Care 04/04/20 19:43 Active Dextrose 50% in Water Med 04/04/20 20:12 Active 50 ml IVPUSH ASDIRECTED PRN Glucagon,Human Recombinant [GlucaGen] Med 04/04/20 20:12 Active 1 mg IM ASDIRECTED PRN Sodium Chloride 0.9% [Saline Flush] Med 04/04/20 19:43 Active 10 ml FLUSH ASDIRECTED PRN Peripheral IV Insertion Adult [OM.PC] Stat Oth 04/04/20 19:43 Ordered Medication Orders Dextrose/Water (Dextrose 50% In Water) 50 ml IVPUSH ASDIRECTED PRN PRN Reason: Hypoglycemia Glucagon (Glucagen) 1 mg IM ASDIRECTED PRN PRN Reason: Hypoglycemia Sodium Chloride (Saline Flush) 10 ml FLUSH ASDIRECTED PRN PRN Reason: Keep Vein Open Last Admin: 04/04/20 20:45 Dose: 10 ml Documented by: BRANNON Labs: Laboratory Tests 04/04/20 04/04/20 04/04/20 Range/Units 19:43 19:43 19:43 WBC 6.8 (4.5-11.0) K/uL RBC 4.29 (3.30-5.50) M/uL Hgb 13.2 (12.0-15.0) g/dL Hct 37.7 (36.0-48.0) % MCV 88 (80-98) fL MCH 31 (27-31) pg MCHC 35 (32-36) % Plt Count 66 L (150-400) K/uL Neut % (Auto) 76 H (36-66) % Lymph % (Auto) 15 L (24-44) % Bond % (Auto) 7 H (2-6) % Eos % (Auto) 2 (2-4) % Baso % (Auto) 0 (0-1) % Puncture Site ABG pH (7.350-7.450) ABG pCO2 (35.0-42.0) mmHg ABG pO2 (75.0-100.0) mmHg ABG HCO3 (22.0-26.0) mmol/L ABG Total CO2 (21.0-25.0) mmol/L ABG O2 Saturation (95.0-98.0) % ABG O2 Content (15.0-23.0) %vol ABG Base Excess mm/L ABG Hemoglobin (12.0-16.0) g/dL ABG Oxyhemoglobin % ABG Carboxyhemoglobin (0.0-1.6) % ABG Methemoglobin % Jose Test O2 Delivery Device Sodium 130 L (140-148) mmol/L Potassium 4.9 (3.6-5.2) mmol/L Chloride 99 L (100-108) mmol/L Carbon Dioxide 22 (21-32) mmol/L Anion Gap 13.9 (5.0-14.0) mmol/L BUN 17 (7-18) mg/dL Creatinine 1.5 H (0.6-1.0) mg/dL Est Cr Clr Drug Dosing 43.48 mL/min Estimated GFR (MDRD) 39 L (>60) Glucose 388 H (74-106) mg/dL POC Glucose (74-106) MG/DL Lactic Acid 1.5 (0.4-2.0) mmol/L Calcium 8.5 (8.5-10.1) mg/dL Phosphorus 4.0 (2.5-4.9) mg/dL Magnesium 1.7 L (1.8-2.4) mg/dL Total Bilirubin 0.5 D (0.2-1.0) mg/dL AST 50 H (15-37) U/L ALT 75 D (12-78) U/L Alkaline Phosphatase 238 H D (46-116) U/L Troponin I (0.000-0.056) ng/mL Total Protein 6.6 (6.4-8.2) g/dL Albumin 2.5 L (3.4-5.0) g/dL Globulin 4.1 H (2.3-3.5) g/dL Albumin/Globulin Ratio 0.6 L (1.2-2.2) Urine Color (YELLOW) Urine Appearance (CLEAR) Urine pH (5.0-8.0) Ur Specific [place] (1.008-1.030) Urine Protein (NEGATIVE) mg/dL Urine Glucose (UA) (NEGATIVE) mg/dL Urine Ketones (NEGATIVE) mg/dL Urine Occult Blood (NEGATIVE) Urine Nitrite (NEGATIVE) Urine Bilirubin (NEGATIVE) Urine Urobilinogen (0.2-1.0) EU/dL Ur Leukocyte Esterase (NEGATIVE) Urine RBC (0-5) Urine WBC (0-5) Ur Epithelial Cells Urine Bacteria Urine Other Ketones (NEGATIVE) 04/04/20 04/04/20 04/04/20 Range/Units 19:44 19:44 19:46 WBC (4.5-11.0) K/uL RBC (3.30-5.50) M/uL Hgb (12.0-15.0) g/dL Hct (36.0-48.0) % MCV (80-98) fL MCH (27-31) pg MCHC (32-36) % Plt Count (150-400) K/uL Neut % (Auto) (36-66) % Lymph % (Auto) (24-44) % Bond % (Auto) (2-6) % Eos % (Auto) (2-4) % Baso % (Auto) (0-1) % Puncture Site ABG pH (7.350-7.450) ABG pCO2 (35.0-42.0) mmHg ABG pO2 (75.0-100.0) mmHg ABG HCO3 (22.0-26.0) mmol/L ABG Total CO2 (21.0-25.0) mmol/L ABG O2 Saturation (95.0-98.0) % ABG O2 Content (15.0-23.0) %vol ABG Base Excess mm/L ABG Hemoglobin (12.0-16.0) g/dL ABG Oxyhemoglobin % ABG Carboxyhemoglobin (0.0-1.6) % ABG Methemoglobin % Jose Test O2 Delivery Device Sodium (140-148) mmol/L Potassium (3.6-5.2) mmol/L Chloride (100-108) mmol/L Carbon Dioxide (21-32) mmol/L Anion Gap (5.0-14.0) mmol/L BUN (7-18) mg/dL Creatinine (0.6-1.0) mg/dL Est Cr Clr Drug Dosing mL/min Estimated GFR (MDRD) (>60) Glucose (74-106) mg/dL POC Glucose 404 H (74-106) MG/DL Lactic Acid (0.4-2.0) mmol/L Calcium (8.5-10.1) mg/dL Phosphorus (2.5-4.9) mg/dL Magnesium (1.8-2.4) mg/dL Total Bilirubin (0.2-1.0) mg/dL AST (15-37) U/L ALT (12-78) U/L Alkaline Phosphatase (46-116) U/L Troponin I < 0.017 (0.000-0.056) ng/mL Total Protein (6.4-8.2) g/dL Albumin (3.4-5.0) g/dL Globulin (2.3-3.5) g/dL Albumin/Globulin Ratio (1.2-2.2) Urine Color (YELLOW) Urine Appearance (CLEAR) Urine pH (5.0-8.0) Ur Specific [place] (1.008-1.030) Urine Protein (NEGATIVE) mg/dL Urine Glucose (UA) (NEGATIVE) mg/dL Urine Ketones (NEGATIVE) mg/dL Urine Occult Blood (NEGATIVE) Urine Nitrite (NEGATIVE) Urine Bilirubin (NEGATIVE) Urine Urobilinogen (0.2-1.0) EU/dL Ur Leukocyte Esterase (NEGATIVE) Urine RBC (0-5) Urine WBC (0-5) Ur Epithelial Cells Urine Bacteria Urine Other Ketones Negative (NEGATIVE) 04/04/20 04/04/20 Range/Units 19:49 20:10 WBC (4.5-11.0) K/uL RBC (3.30-5.50) M/uL Hgb (12.0-15.0) g/dL Hct (36.0-48.0) % MCV (80-98) fL MCH (27-31) pg MCHC (32-36) % Plt Count (150-400) K/uL Neut % (Auto) (36-66) % Lymph % (Auto) (24-44) % Bond % (Auto) (2-6) % Eos % (Auto) (2-4) % Baso % (Auto) (0-1) % Puncture Site Lt radial ABG pH 7.402 (7.350-7.450) ABG pCO2 33.0 L (35.0-42.0) mmHg ABG pO2 86.0 (75.0-100.0) mmHg ABG HCO3 20.1 L (22.0-26.0) mmol/L ABG Total CO2 17.8 L (21.0-25.0) mmol/L ABG O2 Saturation 96.4 (95.0-98.0) % ABG O2 Content 17.9 (15.0-23.0) %vol ABG Base Excess -3.3 mm/L ABG Hemoglobin 13.7 (12.0-16.0) g/dL ABG Oxyhemoglobin 92.9 % ABG Carboxyhemoglobin 2.7 H (0.0-1.6) % ABG Methemoglobin 0.9 % Jose Test Passed O2 Delivery Device Room air Sodium (140-148) mmol/L Potassium (3.6-5.2) mmol/L Chloride (100-108) mmol/L Carbon Dioxide (21-32) mmol/L Anion Gap (5.0-14.0) mmol/L BUN (7-18) mg/dL Creatinine (0.6-1.0) mg/dL Est Cr Clr Drug Dosing mL/min Estimated GFR (MDRD) (>60) Glucose (74-106) mg/dL POC Glucose (74-106) MG/DL Lactic Acid (0.4-2.0) mmol/L Calcium (8.5-10.1) mg/dL Phosphorus (2.5-4.9) mg/dL Magnesium (1.8-2.4) mg/dL Total Bilirubin (0.2-1.0) mg/dL AST (15-37) U/L ALT (12-78) U/L Alkaline Phosphatase (46-116) U/L Troponin I (0.000-0.056) ng/mL Total Protein (6.4-8.2) g/dL Albumin (3.4-5.0) g/dL Globulin (2.3-3.5) g/dL Albumin/Globulin Ratio (1.2-2.2) Urine Color Yellow (YELLOW) Urine Appearance Clear (CLEAR) Urine pH 7.0 (5.0-8.0) Ur Specific [place] 1.015 (1.008-1.030) Urine Protein 100 H (NEGATIVE) mg/dL Urine Glucose (UA) 500 H (NEGATIVE) mg/dL Urine Ketones Negative (NEGATIVE) mg/dL Urine Occult Blood Moderate H (NEGATIVE) Urine Nitrite Negative (NEGATIVE) Urine Bilirubin Negative (NEGATIVE) Urine Urobilinogen 0.2 (0.2-1.0) EU/dL Ur Leukocyte Esterase Negative (NEGATIVE) Urine RBC 10-20 H (0-5) Urine WBC 0-5 (0-5) Ur Epithelial Cells Few Urine Bacteria Not seen Urine Other See note Ketones (NEGATIVE) Meds: Medications Generic Name Dose Route Start Last Admin Trade Name Freq PRN Reason Stop Dose Admin Dextrose/Water 50 ml 04/04/20 20:12 Dextrose 50% In Water IVPUSH ASDIRECTED PRN Hypoglycemia Glucagon 1 mg 04/04/20 20:12 Glucagen IM ASDIRECTED PRN Hypoglycemia Sodium Chloride 10 ml 04/04/20 19:43 04/04/20 20:45 Saline Flush FLUSH 10 ml ASDIRECTED PRN Administration Keep Vein Open Discontinued Medications Generic Name Dose Route Start Last Admin Trade Name Freq PRN Reason Stop Dose Admin Calcium Carbonate/Glycine 1,000 mg 04/04/20 20:47 04/04/20 20:52 Tums PO 04/04/20 20:48 1,000 mg ONETIME ONE Administration Lactated Ringer's 1,000 mls @ 999 mls/hr 04/04/20 19:44 04/04/20 20:45 Ringers, Lactated IV 04/04/20 20:44 999 mls/hr BOLUS ONE Administration Insulin Glargine 18 units 04/04/20 20:12 04/04/20 20:26 Lantus Solostar SUBCUT 04/04/20 20:13 18 units NOW STA Administration Departure - Departure Time of Disposition: 21:26 Disposition: Home, Self-Care 01 Condition: Fair Clinical Impression: Hyperglycemia - Discharge Information Instructions: Hyperglycemia Referrals: PCP,None [Primary Care Provider] - Forms: ED Department Discharge Additional Instructions: Recommend increasing her sliding scale by 2 units for all blood sugars please keep your follow-up appointment with your primary care in 2 days call return to the emergency department worsening of symptoms Sepsis Event Note (ED) - Evaluation Sepsis Screening Result: No Definite Risk - Focused Exam Vital Signs: Vital Signs Temp Pulse Resp BP Pulse Ox 04/04/20 20:44 68 16 119/66 97 04/04/20 18:56 96.3 F L 67 18 121/59 L 98 - My Orders Last 24 Hours: My Active Orders 04/04/20 19:43 Cardiac Monitoring [RC] CONTINUOUS Peripheral IV Care [RC] . DIRECTED Sodium Chloride 0.9% [Saline Flush] 10 ml FLUSH ASDIRECTED PRN Peripheral IV Insertion Adult [OM.PC] Stat 04/04/20 20:12 Dextrose 50% in Water 50 ml IVPUSH ASDIRECTED PRN Glucagon,Human Recombinant [GlucaGen] 1 mg IM ASDIRECTED PRN - Assessment/Plan Last 24 Hours: My Active Orders 04/04/20 19:43 Cardiac Monitoring [RC] CONTINUOUS Peripheral IV Care [RC] . DIRECTED Sodium Chloride 0.9% [Saline Flush] 10 ml FLUSH ASDIRECTED PRN Peripheral IV Insertion Adult [OM.PC] Stat 04/04/20 20:12 Dextrose 50% in Water 50 ml IVPUSH ASDIRECTED PRN Glucagon,Human Recombinant [GlucaGen] 1 mg IM ASDIRECTED PRN Plan: Assessment Acuity = acute Site and laterality = hyperglycemia Etiology = poor insulin control Manifestations = none Location of injury = Home Lab values = CBC unremarkable ABG reveals pH 7.4 PCO2 33 bicarb 20 sodium low at 130 consistent hyponatremia this is chronic creatinine elevated 1.5 consistent chronic renal failure stage G3 B glucose elevated 388 consistent hyperglycemia lactic acid normal 1.5 urinalysis 10-20 RBCs consistent with a hematuria ketones are negative Plan Good improvement with fluids was able to tolerate a meal was given her home insulin discussed options for insulin control she is going to increase her sliding scale by 2 units she does have follow-up appointment with her primary care in 2 days This note was dictated using [employer] voice recognition software please call with any questions on syntax or grammar.
[2020-04-04] MEDS ORDERED: 50% Dextrose in Water 50 ML Syringe IVPUSH PRN (20:12)
[2020-04-04] MEDS ORDERED: Insulin Glargine,Human Rec. Analog 100 Units/ML 3 ML Pen SUBCUT STA (20:12)
[2020-04-04] MEDS ORDERED: Glucagon,Human Recombinant 1 MG Vial IM PRN (20:12)
[2020-04-04 20:44] VITALS: BP 119/66; PULSE 68
[2020-04-04] MEDS ORDERED: Calcium Carbonate 500 MG Tab.Chew PO ONE (20:47)
== END 2020-04-04 21:35 | disposition home or self-care (01) ==
LOC: JP.ED 18:55
DX: E11.65 Type 2 diabetes mellitus with hyperglycemia (principal); J44.9 Chronic obstructive pulmonary disease, unspecified; K21.9 Gastro-esophageal reflux disease without esophagitis; E03.9 Hypothyroidism, unspecified; I12.9 Hypertensive chronic kidney disease with stage 1 through stage 4 chronic kidney disease, or unspecified chronic kidney disease; N18.30 Chronic kidney disease, stage 3 unspecified; F17.210 Nicotine dependence, cigarettes, uncomplicated; E66.9 Obesity, unspecified; Z68.43 Body mass index [BMI] 50.0-59.9, adult; Z88.6 Allergy status to analgesic agent; Z88.5 Allergy status to narcotic agent; Z91.030 Bee allergy status; Z88.8 Allergy status to other drugs, medicaments and biological substances; Z88.0 Allergy status to penicillin; Z79.4 Long term (current) use of insulin; Z79.899 Other long term (current) drug therapy
CPT/HCPCS: 36415; 36600; 80053; 81001; 82009; 82803; 82962; 83605; 83735; 84100; 84484; 85025; 99284; A9270; J1815; J7120; 99283

== ENCOUNTER 2020-12-31 00:14 | Emergency (ER) | payer MEDICAID ==
[2020-12-31 01:36] VITALS: BP 162/96; PULSE 102
--- NOTE | 2020-12-31 01:46 | EDM.PDOC ---
ED HPI GENERAL MEDICAL PROBLEM - General Chief Complaint: Lower Extremity Injury/Pain Stated Complaint: SOB,RIGHT LEG BURNING Time Seen by Provider: 12/31/20 01:30 Source of Information: Reports: Patient, Old Records, RN History Limitations: Reports: No Limitations - History of Present Illness INITIAL COMMENTS - FREE TEXT/NARRATIVE: 40 yo NA female presents with a red, warm, and slightly swollen R leg after a bug bite to the back of that leg approx 12 hrs ago. No fever or chills. Was on her way home from [facility] and stopped here. Onset: Gradual Onset Date: 12/30/20 Duration: Hour(s):, Getting Worse Location: Reports: Lower Extremity, Right Quality: Reports: Dull Severity: Mild Improves with: Reports: None Worsens with: Reports: Other (time) Context: Reports: Other (See HPI) Associated Symptoms: Reports: No Other Symptoms. Denies: Fever/Chills Treatments GUITAR MAKER: Reports: Other (see below) (none) right lower leg Pain Score (Numeric/FACES): 4 - Related Data Allergies Allergy/AdvReac Type Severity Reaction Status Date / Time venom-honey bee Allergy Severe Anaphylactic Verified 12/31/20 01:21 [bee venom (honey bee)] Shock acetaminophen [From Tylenol] Allergy Other Verified 12/31/20 01:21 buprenorphine Allergy Other Verified 12/31/20 01:21 ibuprofen Allergy Other Verified 12/31/20 01:21 naloxone Allergy Other Verified 12/31/20 01:21 naltrexone Allergy Other Verified 12/31/20 01:21 Penicillins Allergy Hives Verified 12/31/20 01:21 pentazocine Allergy Other Verified 12/31/20 01:21 risperidone [From Risperdal] Allergy Seizure Verified 12/31/20 01:21 tramadol Allergy Other Verified 12/31/20 01:21 Home Meds: Home Meds Levothyroxine Sodium [Synthroid] 125 mcg PO DAILY 08/21/14 [History] Montelukast Sodium [Singulair] 10 mg PO DAILY 08/21/14 [History] Methadone HCl [Methadone] 112 mg PO DAILY 12/27/17 [History] Albuterol Sulfate [Albuterol Sulfate Hfa] 1 puff INH Q4H PRN 03/29/19 [History] Furosemide [Lasix] 40 mg PO BID 03/29/19 [History] Insulin Glargine,Hum.Rec.Anlog [Basaglar Kwikpen U-100] 18 unit SQ BEDTIME 03/29/19 [History] Spironolactone [Aldactone] 100 mg PO DAILY 03/29/19 [History] cloNIDine [Catapres] 0.1 mg PO BID 03/29/19 [History] ARIPiprazole [Abilify] 20 mg PO DAILY 04/04/20 [History] Insulin Aspart [NovoLOG] 10 unit SQ TID 04/04/20 [History] Vilazodone [Viibryd] 40 mg PO DAILY 04/04/20 [History] cephALEXin [Cephalexin] 500 mg PO Q6H #30 tablet 12/31/20 [Rx] Past Medical History HEENT History: Reports: Impaired Vision, Other (See Below) Other HEENT History: glasses Cardiovascular History: Reports: Arrhythmia, Hypertension Respiratory History: Reports: Asthma, COPD, SOB Gastrointestinal History: Reports: Cirrhosis, GERD, Hepatitis, Other (See Below) Other Gastrointestinal History: Esophageal varises, stage 4 liver disease Genitourinary History: Reports: Acute Renal Failure, Chronic Renal Insuffiency, Diabetic Nephropathy, Renal Disease, Other (See Below) Other Genitourinary History: IGA Kidney biopsy Late October 2018, ckd stage 3 CUSTOM APPLICATOR History: Reports: Other CUSTOM APPLICATOR History: c sections x3 Musculoskeletal History: Reports: Back Pain, Chronic, Fracture Other Musculoskeletal History: t8 com Neurological History: Reports: Concussion, Seizure Psychiatric History: Reports: Addiction, Anxiety, Depression, Panic Attack, Psych Hospitalization(s), Psychosis, PTSD, Schizophrenia, Suicide Attempt Other Psychiatric History: recently off civil commitment done in January Endocrine/Metabolic History: Reports: Diabetes, Type II, Hypothyroidism, Obesity/BMI 30+ Hematologic History: Reports: Idiopathic Thrombocytopenia Immunologic History: Reports: Other (See Below) Other Immunologic History: Hep C Dermatologic History: Reports: Cellulitis - Infectious Disease History Infectious Disease History: Reports: Chicken Pox, Hepatitis C, Influenza Other Infectious Disease History: current infection of abdominal wound, not MRSA or VRE - Past Surgical History HEENT Surgical History: Reports: Oral Surgery Cardiovascular Surgical History: Reports: None GI Surgical History: Reports: Cholecystectomy Female Surgical History: Reports: Section, Other (See Below) Other Female Surgeries/Procedures: bilateral kidney biopsy Social & Family History - Family History Family Medical History: No Pertinent Family History - Tobacco Use Tobacco Use Status *Q: Current Every Day Tobacco User Years of Tobacco use: 20 Packs/Tins Daily: 1 - Caffeine Use Caffeine Use: Reports: None Caffeine Use Comment: Past use of energy drinks, over use. - Recreational Drug Use Recreational Drug Use: No Review of Systems - Review of Systems Review Of Systems: See Below Constitutional: Reports: No Symptoms Respiratory: Reports: Shortness of Breath (chronic) Musculoskeletal: Reports: No Symptoms Skin: Reports: Erythema (and warmth of R leg below the knee) Neurological: Reports: No Symptoms ED EXAM, GENERAL - Physical Exam Exam: See Below Exam Limited By: No Limitations General Appearance: Alert, WD/WN, No Apparent Distress, Obese Eye Exam: Bilateral Eye: Normal Inspection Ears: Normal External Exam, Normal Canal, Hearing Grossly Normal Ear Exam: Bilateral Ear: Auricle Normal, Canal Normal Nose: Normal Inspection, No Blood Throat/Mouth: Normal Inspection, Normal Lips, No Airway Compromise. No: Normal Voice (whispery) Head: Atraumatic, Normocephalic Neck: Normal Inspection Skin Exam: Warm, Dry, Intact, No Rash, Erythema (of most of the R leg below the knee, warm to touch. No drainage. ) Course - Vital Signs Last Recorded V/S: Last Vital Signs Temp 36.7 C 12/31/20 01:36 Pulse 102 H 12/31/20 01:36 Resp 18 12/31/20 01:36 BP 162/96 H 12/31/20 01:36 Pulse Ox 99 12/31/20 01:36 - Orders/Labs/Meds Orders: Active Orders 24 hr Category Date Time Status VL Duplex Lwr Ext Veins Ltd Rt [US] Stat Exams 12/31/20 03:17 Ordered Labs: Laboratory Tests 12/31/20 12/31/20 12/31/20 Range/Units 01:50 01:50 01:56 WBC 7.6 (4.5-11.0) K/uL RBC 3.28 L (3.30-5.50) M/uL Hgb 10.1 L D (12.0-15.0) g/dL Hct 29.0 L (36.0-48.0) % MCV 88 (80-98) fL MCH 31 (27-31) pg MCHC 35 (32-36) % Plt Count 54 L (150-400) K/uL Neut % (Auto) 74.2 H (36-66) % Lymph % (Auto) 13.4 L (24-44) % [place] % (Auto) 9.9 H (2-6) % Eos % (Auto) 2.2 (2-4) % Baso % (Auto) 0.3 (0-1) % D-Dimer, Quantitative 831.27 H (0.0-500.0) ng/mL POC Glucose 121 H (74-106) mg/dL - Radiology Interpretation Free Text/Narrative:: Venous doppler of R leg-neg Departure - Departure Time of Disposition: 04:26 Disposition: Home, Self-Care 01 Condition: Fair Clinical Impression: Anemia Qualifiers: Anemia type: unspecified type Qualified Code(s): D64.9 - Anemia, unspecified - Discharge Information *PRESCRIPTION DRUG MONITORING PROGRAM REVIEWED*: Not Applicable *COPY OF PRESCRIPTION DRUG MONITORING REPORT IN PATIENT JOSE LUIS: Not Applicable Referrals: Sierra Pimentel MD [Primary Care Provider] - Forms: ED Department Discharge Additional Instructions: Take cephalexin every 6 hrs. Elevate your leg above your heart. Recheck with your provider in the next few days. Sepsis Event Note (ED) - Evaluation Sepsis Screening Result: No Definite Risk - Focused Exam Vital Signs: Vital Signs Temp Pulse Resp BP Pulse Ox 12/31/20 01:36 36.7 C 102 H 18 162/96 H 99 12/31/20 01:34 36.7 C 102 H 18 162/96 H 99 - My Orders Last 24 Hours: My Active Orders 12/31/20 03:17 VL Duplex Lwr Ext Veins Ltd Rt [US] Stat - Assessment/Plan Last 24 Hours: My Active Orders 12/31/20 03:17 VL Duplex Lwr Ext Veins Ltd Rt [US] Stat
[2020-12-31] MEDS ORDERED: Cephalexin 250 MG Cap PO ONE (04:26)
--- NOTE | 2021-01-01 09:43 | US ---
VL Duplex Lwr Ext Veins Ltd Rt INDICATION: R leg warm, swollen FINDINGS: Ultrasound examination of the lower extremity using Doppler and compressive technique demonstrates that the common femoral, femoral, and popliteal veins are patent, and negative for thrombus. The calf veins were segmentally visualized and are negative where seen. IMPRESSION: Negative for deep venous thrombosis.
== END 2020-12-31 05:24 | disposition home or self-care (01) ==
LOC: JP.ED 00:14
DX: D64.9 Anemia, unspecified (principal); J44.9 Chronic obstructive pulmonary disease, unspecified; I10 Essential (primary) hypertension; E03.9 Hypothyroidism, unspecified; E11.9 Type 2 diabetes mellitus without complications; E66.9 Obesity, unspecified; Z68.30 Body mass index [BMI] 30.0-30.9, adult; Z72.0 Tobacco use; Z79.4 Long term (current) use of insulin; Z91.030 Bee allergy status; Z88.0 Allergy status to penicillin; Z88.5 Allergy status to narcotic agent; Z88.8 Allergy status to other drugs, medicaments and biological substances; Z79.899 Other long term (current) drug therapy
CPT/HCPCS: 36415; 82947; 85025; 85379; 93971; 99284; A9270

== ENCOUNTER 2021-03-12 20:43 | Emergency (ER) | payer MEDICAID ==
[2021-03-12 21:31] VITALS: BP 119/63; PULSE 79
--- NOTE | 2021-03-12 22:10 | EDM.PDOC ---
ED HPI GENERAL MEDICAL PROBLEM - General Chief Complaint: General Stated Complaint: IV LEFT IN PLACE Time Seen by Provider: 03/12/21 21:12 Source of Information: Reports: Patient History Limitations: Reports: No Limitations - History of Present Illness INITIAL COMMENTS - FREE TEXT/NARRATIVE: The patient was recently discharged from [facility] after having a catheter placed for hemodialysis. She was sent here to have her IV removed from her right forearm. Apparently they had forgotten to remove it at her discharge. - Related Data Allergies Allergy/AdvReac Type Severity Reaction Status Date / Time venom-honey bee Allergy Severe Anaphylactic Verified 03/12/21 21:23 [bee venom (honey bee)] Shock acetaminophen [From Tylenol] Allergy Other Verified 03/12/21 21:23 buprenorphine Allergy Other Verified 03/12/21 21:23 ibuprofen Allergy Other Verified 03/12/21 21:23 naloxone Allergy Other Verified 03/12/21 21:23 naltrexone Allergy Other Verified 03/12/21 21:23 Penicillins Allergy Hives Verified 03/12/21 21:23 pentazocine Allergy Other Verified 03/12/21 21:23 risperidone [From Risperdal] Allergy Seizure Verified 03/12/21 21:23 tramadol Allergy Other Verified 03/12/21 21:23 Home Meds: Home Meds Levothyroxine Sodium [Synthroid] 125 mcg PO DAILY 08/21/14 [History] Montelukast Sodium [Singulair] 10 mg PO DAILY 08/21/14 [History] Methadone HCl [Methadone] 112 mg PO DAILY 12/27/17 [History] Albuterol Sulfate [Albuterol Sulfate Hfa] 1 puff INH Q4H PRN 03/29/19 [History] Furosemide [Lasix] 40 mg PO BID 03/29/19 [History] Insulin Glargine,Hum.Rec.Anlog [Basaglar Kwikpen U-100] 18 unit SQ BEDTIME 03/29/19 [History] Spironolactone [Aldactone] 100 mg PO DAILY 03/29/19 [History] cloNIDine [Catapres] 0.1 mg PO BID 03/29/19 [History] ARIPiprazole [Abilify] 20 mg PO DAILY 04/04/20 [History] Insulin Aspart [NovoLOG] 10 unit SQ TID 04/04/20 [History] Vilazodone [Viibryd] 40 mg PO DAILY 04/04/20 [History] cephALEXin [Cephalexin] 500 mg PO Q6H #30 tablet 12/31/20 [Rx] Past Medical History HEENT History: Reports: Impaired Vision, Other (See Below) Other HEENT History: glasses Cardiovascular History: Reports: Arrhythmia, Hypertension Respiratory History: Reports: Asthma, COPD, SOB Gastrointestinal History: Reports: Cirrhosis, GERD, Hepatitis, Other (See Below) Other Gastrointestinal History: Esophageal varises, stage 4 liver disease Genitourinary History: Reports: Acute Renal Failure, Chronic Renal Insuffiency, Dialysis, Diabetic Nephropathy, Renal Disease, Other (See Below) Other Genitourinary History: IGA Kidney biopsy Late October 2018, ckd stage 3 DBAS History: Reports: Other DBAS History: c sections x3 Musculoskeletal History: Reports: Back Pain, Chronic, Fracture Other Musculoskeletal History: t8 com Neurological History: Reports: Concussion, Seizure Psychiatric History: Reports: Addiction, Anxiety, Depression, Panic Attack, Psych Hospitalization(s), Psychosis, PTSD, Schizophrenia, Suicide Attempt Other Psychiatric History: recently off civil commitment done in January Endocrine/Metabolic History: Reports: Diabetes, Type II, Hypothyroidism, Obesity/BMI 30+ Hematologic History: Reports: Idiopathic Thrombocytopenia Immunologic History: Reports: Other (See Below) Other Immunologic History: Hep C Dermatologic History: Reports: Cellulitis - Infectious Disease History Infectious Disease History: Reports: Chicken Pox, Hepatitis C, Influenza, Novel Coronavirus Other Infectious Disease History: current infection of abdominal wound, not MRSA or VRE - Past Surgical History HEENT Surgical History: Reports: Oral Surgery Cardiovascular Surgical History: Reports: None GI Surgical History: Reports: Cholecystectomy Female Surgical History: Reports: Section, Other (See Below) Other Female Surgeries/Procedures: bilateral kidney biopsy Social & Family History - Family History Family Medical History: No Pertinent Family History - Tobacco Use Tobacco Use Status *Q: Current Every Day Tobacco User Years of Tobacco use: 20 Packs/Tins Daily: 0.1 - Caffeine Use Caffeine Use: Reports: None Caffeine Use Comment: Past use of energy drinks, over use. ED ROS GENERAL - Review of Systems Review Of Systems: See Below Skin: Reports: Other (Intravenous catheter in the right forearm) ED EXAM, GENERAL - Physical Exam Exam: See Below Extremities: Other (Intravenous catheter in the right forearm) Course - Vital Signs Last Recorded V/S: Last Vital Signs Temp 36.4 C 03/12/21 21:30 Pulse 79 03/12/21 21:30 Resp 20 03/12/21 21:30 BP 119/63 03/12/21 21:30 Pulse Ox 99 03/12/21 21:30 Departure - Departure Time of Disposition: 22:09 Disposition: Home, Self-Care 01 Clinical Impression: Encounter for wound re-check - Discharge Information Referrals: PCP,None [Primary Care Provider] - Sepsis Event Note (ED) - Evaluation Sepsis Screening Result: No Definite Risk - Focused Exam Vital Signs: Vital Signs Temp Pulse Resp BP Pulse Ox 03/12/21 21:30 36.4 C 79 20 119/63 99 - Problem List & Annotations (1) Encounter for wound re-check SNOMED Code(s): 679738821, [id number], [id number], [id number] Code(s): Z51.89 - ENCOUNTER FOR OTHER SPECIFIED AFTERCARE Status: Acute Priority: Low Current Visit: Yes - Problem List Review Problem List Initiated/Reviewed/Updated: Yes
== END 2021-03-12 22:39 | disposition home or self-care (01) ==
LOC: JP.ED 20:43
DX: Z49.01 Encounter for fitting and adjustment of extracorporeal dialysis catheter (principal); J44.9 Chronic obstructive pulmonary disease, unspecified; I12.9 Hypertensive chronic kidney disease with stage 1 through stage 4 chronic kidney disease, or unspecified chronic kidney disease; E11.22 Type 2 diabetes mellitus with diabetic chronic kidney disease; N18.30 Chronic kidney disease, stage 3 unspecified; E66.9 Obesity, unspecified; Z91.030 Bee allergy status; Z88.0 Allergy status to penicillin; Z88.6 Allergy status to analgesic agent; E03.9 Hypothyroidism, unspecified; Z79.4 Long term (current) use of insulin; Z79.899 Other long term (current) drug therapy; Z72.0 Tobacco use
CPT/HCPCS: 99282

== ENCOUNTER 2022-01-21 23:15 | Emergency (ER) | payer MEDICAID ==
[2022-01-21 23:55] VITALS: BP 103/53; PULSE 87
== END 2022-01-22 00:58 | disposition home or self-care (01) ==
LOC: JP.ED 23:15
DX: E72.20 Disorder of urea cycle metabolism, unspecified (principal); K72.91 Hepatic failure, unspecified with coma; B18.2 Chronic viral hepatitis C; J44.9 Chronic obstructive pulmonary disease, unspecified; I12.0 Hypertensive chronic kidney disease with stage 5 chronic kidney disease or end stage renal disease; N18.6 End stage renal disease; F11.20 Opioid dependence, uncomplicated; E11.9 Type 2 diabetes mellitus without complications; E66.9 Obesity, unspecified; Z68.42 Body mass index [BMI] 45.0-49.9, adult; Z88.6 Allergy status to analgesic agent; Z88.0 Allergy status to penicillin; Z88.8 Allergy status to other drugs, medicaments and biological substances; Z88.5 Allergy status to narcotic agent; Z91.030 Bee allergy status; Z79.899 Other long term (current) drug therapy; Z79.4 Long term (current) use of insulin; Z86.16 Personal history of COVID-19; Z90.49 Acquired absence of other specified parts of digestive tract
CPT/HCPCS: 36415; 81001; 82140; 99284

== ENCOUNTER 2022-09-11 11:54 | Emergency (ER) | payer MEDICAID ==
[2022-09-11 12:25] VITALS: PULSE 91
[2022-09-11 13:35] LABS: ESTIMATED GFR 15 mL/min (>60)
[2022-09-11] MEDS ORDERED: Potassium Chloride 20 MEQ Tab.ER PO ONE (13:43)
[2022-09-11 13:50] VITALS: BP 134/72
== END 2022-09-11 14:19 | disposition home or self-care (01) ==
LOC: JP.ED 11:54
DX: E11.65 Type 2 diabetes mellitus with hyperglycemia (principal); K76.9 Liver disease, unspecified; I12.0 Hypertensive chronic kidney disease with stage 5 chronic kidney disease or end stage renal disease; E11.22 Type 2 diabetes mellitus with diabetic chronic kidney disease; N18.6 End stage renal disease; D63.1 Anemia in chronic kidney disease; E87.6 Hypokalemia; D69.6 Thrombocytopenia, unspecified; J44.9 Chronic obstructive pulmonary disease, unspecified; K21.9 Gastro-esophageal reflux disease without esophagitis; E11.40 Type 2 diabetes mellitus with diabetic neuropathy, unspecified; E03.9 Hypothyroidism, unspecified; E66.9 Obesity, unspecified; Z99.2 Dependence on renal dialysis; Z72.0 Tobacco use; Z91.030 Bee allergy status; Z88.8 Allergy status to other drugs, medicaments and biological substances; Z88.6 Allergy status to analgesic agent; Z88.0 Allergy status to penicillin; Z88.5 Allergy status to narcotic agent; Z68.42 Body mass index [BMI] 45.0-49.9, adult
CPT/HCPCS: 36415; 80053; 81001; 81025; 82140; 82803; 83690; 85025; 99284; A9270

== ENCOUNTER 2023-08-18 19:29 | Emergency (ER) | payer MEDICAID ==
[2023-08-18 20:31] LABS: BASOPHILS ABSOLUTE AUTO 0.01 K/uL (0.00-0.10); BASOPHILS PERCENT AUTO 0.3 % (0.1-1.3); EOSINOPHILS ABSOLUTE AUTO 0.07 K/uL (0.00-0.40); EOSINOPHILS PERCENT AUTO 2.3 % (0.0-5.4); HEMATOCRIT 28.5 % (34.3-46.0); HEMOGLOBIN 9.7 g/dL (11.2-15.5); IMMATURE GRAN ABSOLUTE AUTO 0.01 K/uL (0.00-0.23); IMMATURE GRAN PERCENT AUTO 0.3 % (0.0-0.7); LYMPHOCYTES ABSOLUTE AUTO 0.38 K/uL (0.8-3.3); LYMPHOCYTES PERCENT AUTO 12.5 % (11.4-47.7); MEAN CORPUSCULAR HEMOGLOBIN 33.3 pg (31.6-35.5); MEAN CORPUSCULAR VOLUME 97.9 fL (81.4-99.0); MONOCYTES ABSOLUTE AUTO 0.28 K/uL (0.20-0.90); MONOCYTES PERCENT AUTO 9.2 % (3.3-12.6); NEUTROPHILS PERCENT AUTO 75.4 % (40.0-78.1); PLATELET COUNT,PLT 33 K/uL (130-375); RED BLOOD CELL COUNT 2.91 M/uL (3.77-5.24); WHITE BLOOD CELL COUNT,WBC 3.1 K/uL (3.2-11.0)
[2023-08-18 20:50] LABS: INR 1.1; PROTHROMBIN TIME 11.2 sec (9.2-10.6); PTT,PARTIAL THROMBOPLSTIN TIME 26.6 sec (21.8-27.3)
[2023-08-18 20:55] LABS: A/G RATIO 0.4 (1.2-2.2); ALANINE AMINOTRANSFERASE,ALT 53 U/L (12-78); ALBUMIN 2.1 g/dL (3.4-5.0); ALKALINE PHOSPHATASE 185 U/L (46-116); ASPARTATE AMNIOTRANSFERASE,AST 72 U/L (15-37); BILIRUBIN TOTAL 1.3 mg/dL (0.2-1.0); BLOOD UREA NITROGEN,BUN 61 mg/dL (7-18); CALCIUM 8.9 mg/dL (8.5-10.1); CARBON DIOXIDE,CO2 18 mmol/L (21-32); CHLORIDE,CL 99 mmol/L (100-108); ESTIMATED GFR 5 mL/min (>60); GLUCOSE RANDOM 266 mg/dL (74-106); LACTIC ACID 1.4 mmol/L (0.4-2.0); MAGNESIUM 2.5 mg/dL (1.8-2.4); POTASSIUM,K 5.3 mmol/L (3.6-5.2); PROTEIN TOTAL,TP 7.8 g/dL (6.4-8.2); SODIUM,NA 130 mmol/L (140-148); TROPONIN I HIGH SENSITIVITY 5.1 pg/mL (<=60.3)
[2023-08-18 20:56] LABS: ANION GAP 18.3 mmol/L (5.0-14.0)
[2023-08-18 20:58] LABS: CREATININE 8.6 mg/dL (0.6-1.0)
[2023-08-18 21:08] LABS: APPEARANCE,URINE CLOUDY (CLEAR); BILIRUBIN,URINE NEGATIVE (NEGATIVE); COLOR,URINE YELLOW (YELLOW); GLUCOSE,URINE 250 mg/dL (NEGATIVE); KETONES,URINE NEGATIVE (NEGATIVE); LEUKOCYTE ESTERASE,URINE NEGATIVE (NEGATIVE); NITRITE,URINE NEGATIVE (NEGATIVE); OCCULT BLOOD,URINE SMALL (NEGATIVE); PROTEIN,URINE 100 mg/dL (NEGATIVE); UROBILINOGEN,URINE 0.2 EU/dL (0.2-1.0)
[2023-08-18 21:14] LABS: AMORPHOUS SEDIMENT,URINE NOT SEEN; BACTERIA,URINE MANY; EPITHELIAL CELLS,URINE MANY; MUCUS,URINE NOT SEEN; WBC,URINE 0-5 (0-5)
[2023-08-18] MEDS: Sodium Chloride 0.9% 1,000 ML IV ONE (21:35)
[2023-08-18 21:37] VITALS: BP 116/60; PULSE 86
[2023-08-18 21:46] LABS: CORONAVIRUS COVID-19 NAA NEGATIVE (NEGATIVE); INFLUENZA A NAA NEGATIVE (NEGATIVE); INFLUENZA B NAA NEGATIVE (NEGATIVE); RESPIRATORY SYNCYTIAL VIR NAA NEGATIVE (NEGATIVE)
[2023-08-18] MEDS ORDERED: Sodium Chloride 0.9% 1,000 ML IV SCH (22:00)
== END 2023-08-19 00:01 | disposition home or self-care (01) ==
LOC: JP.ED 19:29
DX: M62.81 Muscle weakness (generalized) (principal); D64.9 Anemia, unspecified; E11.65 Type 2 diabetes mellitus with hyperglycemia; I12.0 Hypertensive chronic kidney disease with stage 5 chronic kidney disease or end stage renal disease; N18.6 End stage renal disease; E11.22 Type 2 diabetes mellitus with diabetic chronic kidney disease; K21.9 Gastro-esophageal reflux disease without esophagitis; E03.9 Hypothyroidism, unspecified; E66.9 Obesity, unspecified; J44.89 Other specified chronic obstructive pulmonary disease; F17.200 Nicotine dependence, unspecified, uncomplicated; Z99.2 Dependence on renal dialysis; Z91.030 Bee allergy status; Z88.6 Allergy status to analgesic agent; Z88.8 Allergy status to other drugs, medicaments and biological substances; Z88.0 Allergy status to penicillin; Z88.5 Allergy status to narcotic agent; Z86.16 Personal history of COVID-19; Z68.41 Body mass index [BMI] 40.0-44.9, adult
CPT/HCPCS: 0241U; 36415; 71046; 80053; 81001; 83605; 83735; 84484; 85025; 85379; 85610; 85730; 86140; 93005; 99285; 93010; 99284

== ENCOUNTER 2023-11-11 01:18 | Emergency (ER) | payer MEDICAID ==
[2023-11-11 01:40] VITALS: BP 105/35; PULSE 88
[2023-11-11 02:11] LABS: BASOPHILS PERCENT AUTO 0.2 % (0.1-1.3); EOSINOPHILS ABSOLUTE AUTO 0.14 K/uL (0.00-0.40); EOSINOPHILS PERCENT AUTO 2.6 % (0.0-5.4); HEMATOCRIT 26.9 % (34.3-46.0); HEMOGLOBIN 9.1 g/dL (11.2-15.5); IMMATURE GRAN PERCENT AUTO 0.4 % (0.0-0.7); LYMPHOCYTES ABSOLUTE AUTO 0.89 K/uL (0.8-3.3); LYMPHOCYTES PERCENT AUTO 16.6 % (11.4-47.7); MEAN CORPUSCULAR HEMOGLOBIN 33.1 pg (31.6-35.5); MEAN CORPUSCULAR HGB CONC 33.8 g/dL (31.6-35.5); MEAN CORPUSCULAR VOLUME 97.8 fL (81.4-99.0); MONOCYTES ABSOLUTE AUTO 0.71 K/uL (0.20-0.90); MONOCYTES PERCENT AUTO 13.2 % (3.3-12.6); PLATELET COUNT,PLT 43 K/uL (130-375); RED BLOOD CELL COUNT 2.75 M/uL (3.77-5.24); WHITE BLOOD CELL COUNT,WBC 5.4 K/uL (3.2-11.0)
[2023-11-11 02:12] LABS: BASOPHILS ABSOLUTE AUTO 0.01 K/uL (0.00-0.10); IMMATURE GRAN ABSOLUTE AUTO 0.02 K/uL (0.00-0.23)
[2023-11-11 02:27] LABS: A/G RATIO 0.4 (1.2-2.2); ALANINE AMINOTRANSFERASE,ALT 24 U/L (12-78); ALBUMIN 1.9 g/dL (3.4-5.0); ALKALINE PHOSPHATASE 144 U/L (46-116); ASPARTATE AMNIOTRANSFERASE,AST 43 U/L (15-37); BILIRUBIN TOTAL 2.5 mg/dL (0.2-1.0); BLOOD UREA NITROGEN,BUN 48 mg/dL (7-18); CALCIUM 8.9 mg/dL (8.5-10.1); CARBON DIOXIDE,CO2 21 mmol/L (21-32); CHLORIDE,CL 98 mmol/L (100-108); EST CRCL DRUG DOSING (CG) 6.52 mL/min; ESTIMATED GFR 5 mL/min (>60); GLUCOSE RANDOM 163 mg/dL (74-106); POTASSIUM,K 5.1 mmol/L (3.6-5.2); PROTEIN TOTAL,TP 7.1 g/dL (6.4-8.2); SODIUM,NA 133 mmol/L (140-148)
[2023-11-11 02:28] LABS: ANION GAP 19.1 mmol/L (5.0-14.0); CREATININE 8.8 mg/dL (0.6-1.0)
== END 2023-11-11 05:12 | disposition home or self-care (01) ==
LOC: JP.ED 01:18
DX: K62.5 Hemorrhage of anus and rectum (principal); L03.311 Cellulitis of abdominal wall; I12.9 Hypertensive chronic kidney disease with stage 1 through stage 4 chronic kidney disease, or unspecified chronic kidney disease; N18.5 Chronic kidney disease, stage 5; J44.9 Chronic obstructive pulmonary disease, unspecified; Z99.2 Dependence on renal dialysis; E11.22 Type 2 diabetes mellitus with diabetic chronic kidney disease; E03.9 Hypothyroidism, unspecified; Z86.16 Personal history of COVID-19; Z91.030 Bee allergy status; Z88.6 Allergy status to analgesic agent; Z88.0 Allergy status to penicillin; Z88.5 Allergy status to narcotic agent; Z88.8 Allergy status to other drugs, medicaments and biological substances; Z79.890 Hormone replacement therapy; Z79.51 Long term (current) use of inhaled steroids; Z79.899 Other long term (current) drug therapy
CPT/HCPCS: 36415; 80053; 85025; 86140; 99284